=== PATIENT | female | born 1970 | race Caucasian/White ===

== ENCOUNTER → 2018-07-08 | Outpatient (CLI) | payer BC, OTHER | LOC: M.ULTRA 04-23 16:00 | DX: Z15.09 Genetic susceptibility to other malignant neoplasm (principal); Z90.710 Acquired absence of both cervix and uterus ==

== ENCOUNTER 2019-09-12 10:01 | Emergency (ER) | payer BC, OTHER ==
[~2019-09-12] VITALS: Ht 162.6 cm; Wt 72.6 kg
[2019-09-12] MEDS ORDERED: ZOLOFT100 MG PO (10:14)
[2019-09-12] MEDS ORDERED: EUTHYROX25 MCG PO (10:14)
[2019-09-12] MEDS ORDERED: IBU800 MG PO (11:33)
[2019-09-12] MEDS ORDERED: ZANAFLEX2 M1 PO (11:33)
[2019-09-12 11:48] VITALS: BP 109/75
== END 2019-09-12 11:50 | disposition home or self-care (01) ==
LOC: M.ERS 10:01
DX: S96.812A Strain of other specified muscles and tendons at ankle and foot level, left foot, initial encounter (principal); S80.02XA Contusion of left knee, initial encounter; S40.022A Contusion of left upper arm, initial encounter; Z90.711 Acquired absence of uterus with remaining cervical stump; Z88.0 Allergy status to penicillin; Z88.6 Allergy status to analgesic agent; W18.39XA Other fall on same level, initial encounter; Y93.89 Activity, other specified; Y92.89 Other specified places as the place of occurrence of the external cause; Y99.8 Other external cause status